=== PATIENT | male | born 1980 | race Caucasian/White ===

== ENCOUNTER 2025-01-09 01:49 | Emergency (ER) | payer BC ==
[2025-01-09 02:03] VITALS: BP 138/84; PULSE 89; RESP 18; TEMP 98.1; BMI 24.1
== END 2025-01-09 03:40 | disposition home or self-care (01) ==
LOC: JER 01:49
DX: F10.139 Alcohol abuse with withdrawal, unspecified (principal); Y90.9 Presence of alcohol in blood, level not specified; R14.0 Abdominal distension (gaseous); F41.9 Anxiety disorder, unspecified; R25.1 Tremor, unspecified
CPT/HCPCS: 99283-25